=== PATIENT | female | born 1985 | race Caucasian/White ===

== ENCOUNTER → 2020-12-03 13:54 | Outpatient (CLI) | payer OTHER, SELFPAY ==
[2020-11-27 14:39] VITALS: BMI 21.7
--- NOTE | 2020-12-03 13:56 | US_ITS ---
STUDY: ULTRASOUND OF THE FEMALE PELVIS - COMPLETE REASON FOR EXAM: Female, 35 years old. FIBROIDS-PREVIOUS SCANS DONE IN [place]-NOT AVAILABLE -- FIBROID IS PALPABLE AT THE UMBILICAL AREA -- HX OF C SECTION 2019 LMP: 11/16/2020 TECHNIQUE: Transabdominal and Transvaginal TECHNICAL QUALITY: Adequate. COMPARISON: None. FINDINGS: The uterus is anteverted and is in a midline position. The uterus is enlarged and measures 14.1 cm x 9.6 cm x 8.8 cm cm. Normal uterine cervix. The endometrium measures 8 mm in thickness, and is hyperechoic. There is no demonstrated endometrial mass. 3 dominant fibroids are seen. The largest measures 7.5 cm x 6.9 cm x 7.6 cm. There is also evidence of a 5.3 cm x 3.8 cm x 3.3 cm pedunculated fibroid. I.U.D. - The patient does not have an I.U.D. The right ovary is visualized. The right ovary measures 3.2 cm x 3.1 cm x 2.1 cm. There is a 1.4 cm x 1.4 cm x 1.1 cm follicle in the right ovary. There is no visualized right adnexal mass or complex lesion. There is normal arterial and normal venous vascularity. The left ovary is visualized. The left ovary measures 3.8 cm x 2.7 cm x 1.5 cm. There is no left ovarian cyst or ovarian mass. There is no visualized left adnexal mass or complex lesion. There is normal arterial and normal venous vascularity. There is no fluid in the cul-de-sac. The pre void volume of the bladder was 414 ml. US/Pelvic (Non ) IMPRESSION: Enlarged fibroid uterus. Electronically Signed: Aleksander Cheek MD at 15:36 EST , Service support ,
--- NOTE | 2020-12-03 13:56 | US_ITS ---
STUDY: ULTRASOUND OF THE FEMALE PELVIS - COMPLETE REASON FOR EXAM: Female, 35 years old. FIBROIDS-PREVIOUS SCANS DONE IN [place]-NOT AVAILABLE -- FIBROID IS PALPABLE AT THE UMBILICAL AREA -- HX OF C SECTION 2019 LMP: 11/16/2020 TECHNIQUE: Transabdominal and Transvaginal TECHNICAL QUALITY: Adequate. COMPARISON: None. FINDINGS: The uterus is anteverted and is in a midline position. The uterus is enlarged and measures 14.1 cm x 9.6 cm x 8.8 cm cm. Normal uterine cervix. The endometrium measures 8 mm in thickness, and is hyperechoic. There is no demonstrated endometrial mass. 3 dominant fibroids are seen. The largest measures 7.5 cm x 6.9 cm x 7.6 cm. There is also evidence of a 5.3 cm x 3.8 cm x 3.3 cm pedunculated fibroid. I.U.D. - The patient does not have an I.U.D. The right ovary is visualized. The right ovary measures 3.2 cm x 3.1 cm x 2.1 cm. There is a 1.4 cm x 1.4 cm x 1.1 cm follicle in the right ovary. There is no visualized right adnexal mass or complex lesion. There is normal arterial and normal venous vascularity. The left ovary is visualized. The left ovary measures 3.8 cm x 2.7 cm x 1.5 cm. There is no left ovarian cyst or ovarian mass. There is no visualized left adnexal mass or complex lesion. There is normal arterial and normal venous vascularity. There is no fluid in the cul-de-sac. The pre void volume of the bladder was 414 ml. US/Transvaginal Non- IMPRESSION: Enlarged fibroid uterus. Electronically Signed: Aleksander Cheek MD at 15:36 EST , Service support ,
== END ==
PROVIDERS: PCP Family Medicine; Referring Provider Obstetrics & Gynecology; Visit Provider Obstetrics & Gynecology
DX: D25.9 Leiomyoma of uterus, unspecified (principal)
CPT/HCPCS: 76830; 76856